=== PATIENT | male | born 1985 | race Two or more races ===

== ENCOUNTER 2019-12-01 15:18 | Emergency (ER) | payer SELFPAY ==
[~2019-12-01] VITALS: Ht 172.7 cm; Wt 104.0 kg
[2019-12-01 15:21] VITALS: BP 108/92
[2019-12-01] MEDS ORDERED: HYDROCODONE/ACETAMINOPHEN 5/325MG TABLET PO ONE (17:15)
== END 2019-12-01 19:36 | disposition home or self-care (01) ==
LOC: ER 15:18
DX: S00.83XA Contusion of other part of head, initial encounter (principal); Y08.89XA Assault by other specified means, initial encounter; Y93.89 Activity, other specified; Y92.89 Other specified places as the place of occurrence of the external cause; Y99.8 Other external cause status
CPT/HCPCS: 70486; 71045; 73560; 99285